=== PATIENT | male | born 1990 | race Hispanic/Latino ===

== ENCOUNTER 2017-07-01 09:56 | Emergency (ER) | payer SELFPAY ==
[~2017-07-01] VITALS: Ht 165.1 cm; Wt 90.7 kg
--- OUTSIDE RECORDS SUMMARY | 2017-07-01 09:58 | XMS REPORT | Clinical Summary ---
Author Author [facility] Address Unknown Phone Unavailable Care Team Providers [facility] Name Role Phone Asked, Pcp PCP Unavailable Allergies No Known Allergies Current Medications Prescription Sig. Disp. Refills Start End Date Status Date ondansetron (ZOFRAN) 4 MG Take 1 tablet (4 mg 8 tablet 0 12/26/19 Active tablet total) by mouth every 8 17 (eight) hours as needed for nausea or vomiting for up to 8 doses. ibuprofen (ADVIL,MOTRIN) Take 1 tablet (600 mg 30 tablet 0 01/28/20 Active 600 MG tablet total) by mouth every 6 17 (six) hours as needed for mild pain for up to 30 doses. metoclopramide (REGLAN) Take 1 tablet (10 mg 10 tablet 0 01/28/20 10 MG tablet total) by mouth every 8 17 17 (eight) hours as needed (nausea/vomiting) for up to 10 days. Active Problems Not on file Encounters Date Type Specialty Care Team Description 05/27/2017 Emergency Emergency Medicine Yaz Bey DO Substance abuse (Primary - Dx) 05/30/2017 02/16/2017 Emergency Emergency Medicine 01/27/2017 Emergency Emergency Medicine Hernandez Darnell MD Viral syndrome (Primary Dx); Panic attack 12/25/2016 Emergency Emergency Medicine Hernandez Darnell MD Nausea and vomiting, intractability of vomiting not specified, unspecified vomiting type (Primary Dx); Alcoholism; Panic attack; Acute anxiety 08/04/2016 Emergency Emergency Medicine Shirin Carter Alcohol abuse (Primary MD Dominic Dx); Other depression; Polysubstance abuse after 06/30/2016 Social History Tobacco Use Types Packs/Day Years Used Date Current Some Day Smoker Smokeless Tobacco: Current User Alcohol Use Drinks/Week oz/Week Comments Yes 16 Cans of 9.6 beer Sex Assigned at Date Recorded Not on file Last Filed Vital Signs Vital Sign Reading Time Taken Blood Pressure 132/68 05/30/2017 11:15 AM CDT Pulse 72 05/30/2017 11:15 AM CDT Temperature 36.1 C (97 F) 05/30/2017 11:15 AM CDT Respiratory Rate 16 05/30/2017 6:48 AM CDT Oxygen Saturation 96% 05/30/2017 11:15 AM CDT Inhaled Oxygen - - Concentration Weight 90.7 kg (199 lb 15.3 oz) 05/27/2017 1:47 PM CDT Height 165.1 cm (5' 5") 05/27/2017 1:47 PM CDT Body Mass Index 33.27 05/27/2017 1:47 PM CDT Plan of Treatment Health Maintenance Due Date Last Done Comments INFLUENZA VACCINE 10/09/2017 Results * Urine drugs of abuse screen (05/27/2017 2:23 PM) Only the most recent of 2 results within the time period is included. Component Value Ref Range Amphetamine screen, urine Negative Barbiturate screen, urine Negative Benzodiazepine screen, Negative urine Cannabinoid screen, urine Negative Cocaine screen, urine Negative Methadone metabolite Negative (EDDP), urine Opiates screen, urine Negative Oxycodone screen, urine Negative Phencyclidine screen, Negative urine Tricyclic screen, urine Negative Comment: Drug screen minimum concentration of detectability Amphetamines 1000 ng/mL Barbiturates 200 ng/mL Benzodiazepines 300 ng/mL Cocaine 300 ng/mL Methadone 3 00 ng/mL Opiates 300 ng/mL Oxycodone 3 00 ng/mL Phencyclidine 25 ng/mL Cannabinoids 50 ng/mL Tricyclics 1000 ng/mL Negative test results indicates presumptive evidence of lack of clinically significant drug concentration in this urine specimen. Positive test results are presumptive evidence of clinically significant drug concentration in this urine specimen. Testing performed for medical purposes only. Specimen Performing Laboratory Urine [facility] DEPARTMENT OF PATHOLOGY AND GENOMIC MEDICINE [address] [place] [address]. [address] [place] [id number] * Urinalysis, automated with microscopy (05/27/2017 2:23 PM) Component Value Ref Range Color, UA Yellow YELLOW Appearance, UA Clear Clear Specific gravity, UA 1.021 1.005 - 1.030 pH, UA 6.5 5.0 - 8.0 Protein, UA Negative Negative Glucose, UA Negative Negative Ketones, UA Negative Negative Bilirubin, UA Negative Negative Blood, UA Negative Negative Nitrite, UA Negative NEGATIVE Urobilinogen, UA <2.0 <2.0 E.U./dL Leukocyte esterase, UA Trace (A) Negative WBC, UA <1 0 - 5 /Hpf RBC, UA 2 0 - 5 /HPF Bacteria, UA None seen None seen Yeast, UA None seen None Seen Yeast with pseudohyphae, None seen UA Specimen Performing Laboratory Urine [facility] DEPARTMENT OF PATHOLOGY AND GENOMIC MEDICINE [address] [place] [id number] * Estimated GFR (05/27/2017 2:10 PM) Only the most recent of 4 results within the time period is included. Component Value Ref Range GFR Non Af Amer 79 mL/min/1.73 m2 GFR Af Amer >90 mL/min/1.73 m2 Comment: Chronic kidney disease: <60 mL/min/1.73m2 Kidney failure: <15 mL/min/1.73m2 The estimated GFR is calculated from the IDMS-traceable Modification of Diet in Renal Disease Equation. The accuracy of the calculation is poor when the creatinine is normal. Calculated values >90 mL/min/1.73m2 are not reported. This equation has not been validated in children (<18 years), women, the elderly (>70 years), or ethnic groups other than Caucasians and Americans. Specimen Performing Laboratory Plasma specimen [facility] OF PATHOLOGY AND GENOMIC MEDICINE [address] [place] [address] * CBC with platelet and differential (05/27/2017 2:10 PM) Only the most recent of 4 results within the time period is included. Component Value Ref Range WBC 6.5 4.5 - 11.0 k/uL RBC 5.11 4.40 - 6.00 M/uL HGB 15.5 14.0 - 18.0 g/dL HCT 46.8 41.0 - 51.0 % MCV 91.6 82.0 - 100.0 fL MCH 30.3 27.0 - 34.0 pg MCHC 33.1 31.0 - 37.0 g/dL RDW - SD 41.1 37.0 - 55.0 fL MPV 11.1 8.8 - 13.2 fL Platelet count 241 150 - 400 K/uL Nucleated RBC 0.00 /100 WBC Neutrophils 58.8 39.0 - 69.0 % Lymphocytes 34.1 25.0 - 45.0 % Monocytes 5.4 0.0 - 10.0 % Eosinophils 0.8 0.0 - 5.0 % Basophils 0.6 0.0 - 1.0 % Immature granulocytes 0.3Comment: "Immature granulocytes" 0.0 - 1.0 % (promyelocytes, myelocytes, metamyelocytes) Specimen Performing Laboratory Blood [facility] PATHOLOGY AND [facility] MEDICINE [address] [place] [address] * Creatine kinase, total (CPK) (05/27/2017 2:10 PM) Component Value Ref Range Creatine kinase 162 35 - 200 U/L Specimen Performing Laboratory Plasma specimen [facility] [place] [address] * Alcohol level, blood (05/27/2017 2:10 PM) Only the most recent of 3 results within the time period is included. Component Value Ref Range Alcohol None Detected mg/dl Alcohol percent None Detected 0.00 - 0.08 % Comment: Normal None Detected Legal Intoxication in [place] 80 mg/dL (0.08%) - Whole Blood Toxic Concentration 200 mg/dL (0.2%) Potentially Fatal 350 - 500 mg/dL (0.35 - 0.5%) Specimen Performing Laboratory Plasma specimen [facility] [place] [address] * Acetaminophen level (05/27/2017 2:10 PM) Only the most recent of 2 results within the time period is included. Component Value Ref Range Acetaminophen level <15.0 10.0 - 30.0 ug/mL Specimen Performing Laboratory Plasma specimen [facility] [place] [address] * Salicylate level (05/27/2017 2:10 PM) Only the most recent of 2 results within the time period is included. Component Value Ref Range Salicylate <0.3 (L) 5.0 - 30.0 mg/dL Comment: Therapeutic Range: 5 - 30 mg/dL Specimen Performing Laboratory Plasma specimen [facility] [place] [address] * Basic metabolic panel (05/27/2017 2:10 PM) Component Value Ref Range Sodium 139 135 - 148 mEq/L Potassium 4.0 3.5 - 5.0 mEq/L Chloride 100 99 - 109 mEq/L CO2 28 24 - 31 mEq/L Anion gap 11 7 - 15 mEq/L Comment: Starting from June , anion gap calculation no longer incorporates potassium. Please note the change. BUN 14 8 - 24 mg/dL Creatinine 1.1 0.5 - 1.5 mg/dL Glucose 104 (H) 65 - 99 mg/dL Calcium 9.6 8.6 - 10.6 mg/dL Specimen Performing Laboratory Plasma specimen [facility] DEPARTMENT OF PATHOLOGY AND GENOMIC MEDICINE [address] [place] [address] * ECG 12 lead (02/16/2017 7:35 PM) Only the most recent of 2 results within the time period is included. Component Value Ref Range Ventricular rate 90 Atrial rate 90 AR interval 124 QRSD interval 94 QT interval 344 QTC interval 420 P axis 1 11 QRS axis 1 40 T wave axis 7 EKG impression Normal sinus rhythm-Possible Inferior infarct , age undetermined-Abnormal ECG-In automated comparison with ECG of 04-AUG-2016 08:13,-Borderline criteria for Inferior infarct are now present- Specimen Performing Laboratory [facility] MUSE [address] [place] [id number] * Infectious mononucleosis screen (01/27/2017 8:52 PM) Component Value Ref Range Heterophile Ab screen Negative Negative Specimen Performing Laboratory Blood [facility] DEPARTMENT OF PATHOLOGY AND [facility] MEDICINE [address] [place] [address] * HIV 1, 2 antibody (01/27/2017 8:52 PM) Component Value Ref Range HIV 1, 2 antibody Non-reactive Non-reactive Specimen Performing Laboratory Blood [facility] DEPARTMENT OF PATHOLOGY AND [facility] MEDICINE [address] [place] [address] * Influenza antigen (01/27/2017 8:52 PM) Component Value Ref Range Influenza antigen Results called and readback by Dr. Jeong/TIFFANIE at 21:37 01/27/2017 [facility]. (A) Comment: Specimen Information Specimen Source: Nares Specimen Site: Right Influenza antigen Positive for Influenza A antigen. (A) Specimen Performing Laboratory Nares - Right [facility] DEPARTMENT OF PATHOLOGY AND GENOMIC MEDICINE [address] [place] [address] * XR Chest 2 Vw (01/27/2017 8:26 PM) Specimen Performing Laboratory [facility] [address] [place] [id number] Narrative Examination:XR CHEST 2 VW Clinical History: Cough Comparison: None. Technique: Frontal and lateral views of the chest were obtained. Findings: Lungs and pleural surfaces are clear. Cardiomediastinal silhouette and pulmonary vascularity are within normal limits. Bones are intact. Impression: No active cardiopulmonary disease identified. [id number] Procedure Note Hm Interface, Radiology Results Incoming - 01/27/2017 8:36 PM [employer] Examination: XR CHEST 2 VW Clinical History: Cough Comparison: None. Technique: Frontal and lateral views of the chest were obtained. Findings: Lungs and pleural surfaces are clear. Cardiomediastinal silhouette and pulmonary vascularity are within normal limits. Bones are intact. Impression: No active cardiopulmonary disease identified. [id number] * Urinalysis screen and microscopy, with reflex to culture (01/27/2017 6:20 PM) Only the most recent of 2 results within the time period is included. Component Value Ref Range Specimen site Clean catch Color, UA Yellow YELLOW Appearance, UA Clear Clear Specific gravity, UA 1.021 1.005 - 1.030 pH, UA 6.0 5.0 - 8.0 Protein, UA 1+ (A) Negative Glucose, UA Negative Negative Ketones, UA 1+ (A) Negative Bilirubin, UA Negative Negative Blood, UA Trace (A) Negative Nitrite, UA Negative NEGATIVE Urobilinogen, UA <2.0 <2.0 E.U./dL Leukocyte esterase, UA Negative Negative WBC, UA 3 0 - 5 /Hpf RBC, UA 10 (H) 0 - 5 /HPF Bacteria, UA None seen None seen Yeast, UA None seen None Seen Yeast with pseudohyphae, None seen UA Specimen Performing Laboratory Urine [facility] DEPARTMENT OF PATHOLOGY AND GENOMIC MEDICINE [address] [place] [address]. [address] [place] [address] * Urine culture (01/27/2017 6:20 PM) Only the most recent of 2 results within the time period is included. Component Value Ref Range Urine culture SEE COMMENTComment: Bacteriuria screen negative. Specimen Performing Laboratory Urine [facility] DEPARTMENT OF PATHOLOGY AND GENOMIC MEDICINE [address] [place], [place] [address]y. [address] [place] [address] * Lipase level (01/27/2017 5:40 PM) Only the most recent of 2 results within the time period is included. Component Value Ref Range Lipase 21 (L) 23 - 300 U/L Specimen Performing Laboratory Plasma specimen [facility] DEPARTMENT OF PATHOLOGY AND GENOMIC MEDICINE [address] [address] [employer] [place] [address] * Comprehensive metabolic panel (01/27/2017 5:40 PM) Only the most recent of 3 results within the time period is included. Component Value Ref Range Sodium 141 135 - 148 mEq/L Potassium 3.5 3.5 - 5.0 mEq/L Chloride 101 99 - 109 mEq/L CO2 24 24 - 31 mEq/L Anion gap 16 (H) 7 - 15 mEq/L Comment: Starting from June , anion gap calculation no longer incorporates potassium. Please note the change. BUN 14 8 - 24 mg/dL Creatinine 1.2 0.5 - 1.5 mg/dL Glucose 111 (H) 65 - 99 mg/dL Calcium 8.5 (L) 8.6 - 10.6 mg/dL Protein 6.8 6.3 - 8.2 g/dL Albumin 4.3 3.5 - 5.0 g/dL A/G ratio 1.72 0.70 - 3.80 Alkaline phosphatase 78 30 - 115 U/L AST 35 15 - 46 U/L ALT 26 10 - 55 U/L Total bilirubin 0.4 0.2 - 1.2 mg/dL Specimen Performing Laboratory Plasma specimen [facility] DEPARTMENT OF PATHOLOGY AND GENOMIC MEDICINE [address] [address] [place] [address] after 06/30/2016
[2017-07-01 11:29] VITALS: BP 120/81
== END 2017-07-01 10:45 | disposition left against medical advice (07) ==
LOC: ER 09:56
DX: F41.1 Generalized anxiety disorder (principal)